=== PATIENT | male | born 1960 | race African-American/Black ===

== ENCOUNTER 2017-03-04 15:39 | Emergency (ER) | payer MEDICARE, MEDICAID ==
[~2017-03-04] VITALS: Ht 175.3 cm; Wt 124.0 kg
[2017-03-04 20:07] VITALS: BP 130/83
[2017-03-04 20:25] LABS: CLARITY URINE CLEAR (CLEAR); COLOR URINE YELLOW (YELLOW); GLUCOSE URINE 3+ (NEGATIVE); KETONES URINE 1+ (NEGATIVE); LEUKOCYTE ESTERASE URINE NEGATIVE (NEGATIVE); NITRITE URINE NEGATIVE (NEGATIVE); OCCULT BLOOD URINE TRACE (NEGATIVE); PROTEIN URINE 1+ (NEGATIVE); SPECIFIC GRAVITY URINE 1.048 (1.005-1.030); UROBILINOGEN URINE 0.2 E.U./dL (0.2-1.0)
[2017-03-04] MEDS ORDERED: KETOROLAC 60MG/2ML VIAL IM ONE (21:15)
[2017-03-04 21:21] LABS: BASOPHILS % 0.8 % (0.0-2.0); EOSINOPHILS % 0.6 % (0.0-5.0); HEMATOCRIT. 49.2 % (42.0-52.0); HEMOGLOBIN. 16.3 g/dL (14.0-18.0); LYMPHOCYTES % 33.8 % (20.0-50.0); MEAN CORPUSCULAR HEMOGLOBIN 27.9 pg (28.0-32.0); MEAN CORPUSCULAR VOLUME 84.1 fL (80.0-94.0); MEAN PLATELET VOLUME 8.5 fl (7.4-10.4); MONOCYTES % 8.4 % (2.0-8.0); NEUTROPHILS % 56.4 % (40.0-76.0); PLATELET 260 x1000/uL (130-400); RED BLOOD CELL COUNT 5.84 mill/uL (4.7-6.1)
[2017-03-04 21:29] LABS: CHLORIDE 102 mEq/L (98-107)
[2017-03-04 21:38] LABS: CARBON DIOXIDE 27 mEq/L (21-32)
== END 2017-03-04 23:30 | disposition home or self-care (01) ==
LOC: ER 15:39
DX: E11.9 Type 2 diabetes mellitus without complications (principal); R35.0 Frequency of micturition; I10 Essential (primary) hypertension; R20.8 Other disturbances of skin sensation; M54.5 Low back pain; Z87.440 Personal history of urinary (tract) infections
CPT/HCPCS: 36415; 80053; 81001; 85025; 96372; 99284; J1885